=== PATIENT | male | born 1970 | race Caucasian/White ===

== ENCOUNTER 2018-01-16 09:30 | Outpatient (RCR) | payer BC, SELFPAY ==
--- NOTE | 2017-12-21 11:04 | HP.PTEVAL_ITS ---
Patient's Visit Information ROBERT ZAFAR is a 47 year old M referred to Physical Therapy by [facility] with a diagnosis of OA. Date of Evaluation: 12/21/17 Physical Therapist: Jessa Hopkins Visit Plan Frequency: 2-3x /Week Duration: 4-6 Weeks Plan: POSTURE CORRECTION/STRENGTHENING, INSTRUCTION IN APPROPRIATE BODY MECHANICS AND ACTIVITY MODIFICATIONS. CORE AND LEFT LE ROM, STRETCHING AND STRENGTHENING. EDEMA CONTROL. HEP INSTRUCTION. 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 LOTS OF WALKING. NO SITTING AT WORK. ON CONCRETE STANDING AND WALKING 40 HOURS A WEEK. THIS TYPE OF WORK FOR ABOUT 13 YEARS. Disability: NO. Present symptoms: LEFT KNEE. NO NUMBNESS OR TINGLING. Present since: ABOUT 8 MONTHS. Pain Scale: WORST 8/10, LEAST 1/10. Currently: 07/21. Commenced as a result of: NO APPARENT REASON. Symptoms at onset: SAME. Worse: THE MOST PAINFUL THING IS TO GET DOWN ON KNEE, TRYING TO GET BACK UP FROM THE GROUND - CAN'T, PUTTING SHOES AND SOCKS ON, BENDING KNEE BACKWARDS, GETTING IN/OUT OF CAR. STEPS. Better: PROPPING KNEE IN LYING, IBUPROFEN. Disturbed sleep: YES. Previous history/Previous treatment: DR. MINA DRAINED LEFT KNEE AND GAVE HIM A CORTISONE SHOT IN OCTOBER AND IT HELPED FOR A FEW DAYS BUT THEN IT STARTED FILLING BACK UP AGAIN. CHIROPRACTOR MANIPULATED HIS BACK AND KNEE SUNDAY AND THAT HELPED A LITTLE BIT. NO PRIOR HISTORY OF KNEE PROBLEMS NEEDING PROFESSIONAL TREATMENT. DR. MINA REFERRED HIM TO A [employer] STATION MANAGER. THEY DID BLOOD AND THEY HAVE NOT GIVEN HIM A DIAGNOSIS YET. MRI HAS BEEN ORDERED BUT NOT APPROVED YET. Gait: PATIENT REPORTS HE LIMPS WHEN HE WALKS BECAUSE OF HIS LEFT KNEE. Accidents: NO. Unexplained weight loss: NO. Imaging : LEFT KNEE X-RAYS AT [facility] AND PATIENT REPORTS DR. GARDNER DIDN'T SEE ANYTHING WRONG WITH THE JOINT. PMH: HISTORY OF RASH ON LEFT KNEE TREATED WITH PRESCRIPTION CREAM - CLEARED UP WITH THE CREAM. ALLERGIES. HISTORY OF LOW BACK PROBLEMS X APPROX 30 YEARS TREATED WITH CHIROPRACTOR OVER THE YEARS NEEDED. Recent major surgery: UNREMARKABLE. - Objective Sitting/Standing Posture: POOR. Other Observations: INDEP AMBULATION INTO PT WITHOUT AD WITH MILD LIMP ON LLE. PATIENT IS WALKING ON SLIGHTLY BENT LEFT KNEE. Motor deficit: RIGHT LE 5/5 WITH MMT EXCEPT HIP GRADED 4/5. LEFT LE: HIP 4-/5, KNEE EXT 3-/5, KNEE FLEX 4/5, ANKLE 5/5, EHL 5/5. Sensory deficit: CISCO LE LIGHT TOUCH IS INTACT AND SYMMETRICAL. ROM deficit: LEFT KNEE ROM IN SUPINE WITH A HEEL SLIDE IS -5 DEG EXT TO 107 DEG FLEX WITH PAIN AT THE END OF THE AVAILABLE ROM AND DURNING ROM ESPECIALLY EXTENDING AFTER FLEXION. Core strength: POOR. Palpation: PATEINT IS REALLY NOT ACUTELY TENDER WITH PALPATION OF THE ENTIRE LEFT KNEE TODAY BUT STATES THAT HE IS TYPICALLY TENDER ALONG THE INSIDE. HE HAS MODERATE SWELLING IN THE LEFT KNEE COMPARED TO THE RIGHT. - Goals Goal 1:: DECREASE C/O LEFT KNEE PAIIN Goal Time Frame: 2-4 Weeks Goal 2:: IMPROVE STANDING, WALKING, WORK, ADL RECREATIONAL AND SLEEP FUNCTION Goal Time Frame: 2-4 Weeks Goal 3:: INCREASE FUNTIONAL ROM OF THE LEFT KNEE TO EASE ADL'S. Goal Time Frame: 2-4 Weeks Goal 4:: IMPROVE FUNCTIONAL STRENGTH OF THE LEFT LE TO IMPROVE WORK TOLERANCE Goal Time Frame: 2-4 Weeks Goal 5:: INDEP HEP Goal Time Frame: 2-4 Weeks - Rehabilitation Potential Rehabilitation Potential: Fair - Anticipated Interventions Patient/Client Instruction: Educate patient on: Condition, Plan of Care, Risk Factors, Benefits of Fitness Program For the Purpose of:: To improve self management Therapeutic Exercise to Include: Strength training, Body mechanics, Postural training, Flexibilty training, Gait and locomotor training, In an aquatic setting, Active ROM For the Purpose of:: To decrease pain, To decrease swelling/inflammation, To increase ROM, To improve muscle performance and motor function, To improve ability to perform ADL's, To increase tolerance to activity/condition/position, To improve ability of physical actions for home/community/work/leisure, To improve gait and locomotor functions TENS: Yes Cryotherapy (ice pack, ice massage): Yes Vasopneumatic device: Yes For the Purpose of:: To decrease pain, To decrease swelling/inflammation Thank you for the opportunity to evaluate your patient. For Medicare and Medicare HMO plans, please review the plan of care and approve it. It will need to be FAXED BACK to us at [phone] for Medicare purposes. Please let me know if there are questions or concerns regarding this plan of care. Physician Signature: Date:
--- NOTE | 2018-01-16 12:40 | HP.PTDCSUM_ITS ---
HP - PT D/C Summary It has been my pleasure to treat ROBERT ZAFAR under orders from LUDMILA IGNAT, for the diagnosis of OA for a total of 10 visit(s). Discharge Date: 01/16/18 Please see the following information for a summary of their discharge status. - Subjective Subjective: PATIENT REPORTS HE IS HAVING A LITTLE LESS PAIN OVER-ALL. IT IS AT A 4 MOST OF THE TIME. THE SWELLING IS SOME BETTER TOO. HE STATES HE FEELS LIKE HE IS WALKING BETTER. HE STATES HE CAN BEND AND TWIST HIS KNEE TO GET OUT OF THE CAR IN TIGHTER SPOTS NOW TOO BUT THE SWELLING, PAIN AND TIGHTNESS IS PERSISTING STILL. NO PAIN RIGHT NOW BUT 3-4/10 LEFT KNEE PAIN WALKING BACK TO PT TODAY. MOST OF THE PAIN IS ON THE INSIDE OF THE KNEE. THE TOP OUTSIDE OF THE KNEE FEELS TIGHT. IT IS STILL VERY PAINFULL TO GET DOWN ON KNEES OR EVEN PUTTING PRESSURE ON HIS KNEE ON THE BED. TRYING TO PUT LEFT FOOT ON RIGHT KNEE TO PUT SHOES AND SOCKS ON IS DIFFICULT AND PAINFUL. STATES HE IS STILL AT THE POINT OF WANTING TO KNOW WHAT IS CAUSING IT. PATIENT REPORTS BEING LATE TODAY DUE TO NEEDING TO WAIT ON CONSTRUCTION. VERBAL AND WRITTEN HEP GIVEN - Pain L kne Pain Intensity (Out of 10): 0 - Overall Improvement % Improvement: 50 - Objective Objective/Function: INDEP AMBULATION INTO PT WITHOUT AD WITH MILD LIMP ON LLE. PATIENT IS WALKING ON SLIGHTLY BENT LEFT KNEE. Motor deficit: LEFT LE: HIP 4/ 5, KNEE EXT 3-/5, KNEE FLEX 4/5, ANKLE 5/5, EHL 5/5. Sensory deficit: CISCO LE LIGHT TOUCH IS INTACT AND SYMMETRICAL. ROM deficit: LEFT KNEE ROM IN SUPINE WITH A HEEL SLIDE IS -5 DEG EXT TO 114 DEG FLEX WITH PAIN AT THE END OF THE AVAILABLE ROM AND DURNING ROM. Core strength: POOR. Palpation: PATEINT HAS MILD TENDERNESS WITH PALPATION OF THE LEFT KNEE MEDIALLY TODAY. HE HAS MODERATE SWELLING IN THE LEFT KNEE COMPARED TO THE RIGHT. PATIENT TOLERATED ALL EX'S WELL AND DEMONSTRATED/COMMUNICATED A GOOD UNDERSTANDING OF ALL INSTRUCTIONS AFTER GIVEN. - Goals Goal 1:: DECREASE C/O LEFT KNEE PAIIN Goal Progress: Progressing Goal 2:: IMPROVE STANDING, WALKING, WORK, ADL RECREATIONAL AND SLEEP FUNCTION Goal Progress: Progressing Goal 3:: INCREASE FUNTIONAL ROM OF THE LEFT KNEE TO EASE ADL'S. Goal Progress: Progressing Goal 4:: IMPROVE FUNCTIONAL STRENGTH OF THE LEFT LE TO IMPROVE WORK TOLERANCE Goal Progress: Not Progressing Goal 5:: INDEP HEP Goal Progress: Goal Met - Plan Plan: D/C TO PHYSICIAN RE-ASSESSMENT. PATIENT AGREEABLE. - D/C Information If there are questions or concerns regarding this patient's physical therapy, please feel free to call me at [phone]. Thank you for the referral of this patient. Sincerely, Jessa Da Silva
== END 2018-01-16 18:55 | disposition home or self-care (01) ==
LOC: PT 09:30
PROVIDERS: Family Provider Nurse Practitioner Family; PCP Nurse Practitioner Family
DX: M17.9 Osteoarthritis of knee, unspecified (principal)
CPT/HCPCS: 97110; 97161; 97530